=== PATIENT | female | born 1990 | race Caucasian/White ===

== ENCOUNTER → 2018-02-04 | Outpatient (CLI) | payer BC ==
--- NOTE | 2018-02-04 15:19 | RADIOLOGY REPORT (SQ) ---
EXAM DESCRIPTION: ANKLE RIGHT COMPLETE COMPLETED DATE/TIME: 02/04/2018 3:09 pm REASON FOR STUDY: SPRAIN OF RT ANKLE, UNSPEC LIGAMENT,INITIAL ENCOUNTER S93.401A SPRAIN OF UNSPECIF IED LIGAMENT OF RIGHT ANKLE, INIT COMPARISON: None. NUMBER OF VIEWS: Three views. TECHNIQUE: AP, lateral, and oblique radiographic images acquired of the right ankle. LIMITATIONS: None. FINDINGS: MINERALIZATION: Normal. BONES: No acute fracture or dislocation. No worrisome bone lesions. JOINTS: No effusions. SOFT TISSUES: No soft tissue swelling. No foreign body. OTHER: No other significant finding. IMPRESSION: NEGATIVE STUDY OF THE RIGHT ANKLE. NO RADIOGRAPHIC EVIDENCE OF ACUTE INJURY. TECHNICAL DOCUMENTATION: JOB ID: [id number] [employer]- All Rights Reserved Reading location - IP/workstation name: [email or web address]
== END ==
LOC: OD 14:50
PROVIDERS: ATTEND Nurse Practitioner Acute Care
DX: S93.401A Sprain of unspecified ligament of right ankle, initial encounter (principal); X58.XXXA Exposure to other specified factors, initial encounter

== ENCOUNTER → 2018-05-15 | Outpatient (CLI) | payer BC ==
--- NOTE | 2018-05-15 13:19 | EKG REPORT ---
SEVERITY:- NORMAL ECG - SINUS RHYTHM : Confirmed by: Moose Gill MD 15-May-2018 13:18:01
== END ==
LOC: OD 12:18
PROVIDERS: ATTEND Nurse Practitioner Family
DX: I10 Essential (primary) hypertension (principal)
CPT/HCPCS: 93005; 93010

== ENCOUNTER → 2018-07-18 | Outpatient (CLI) | payer BC ==
[2018-07-18 10:05] LABS: CHOLESTEROL 191.37 mg/dL (0-200); TRIGLYCERIDES 94 mg/dL (<150)
[2018-07-18 10:16] LABS: DIRECT LDL 111 mg/dL (<100)
== END ==
LOC: OD 08:21
PROVIDERS: ATTEND Physician Assistant
DX: I10 Essential (primary) hypertension (principal); R06.02 Shortness of breath; R00.2 Palpitations; E28.2 Polycystic ovarian syndrome
CPT/HCPCS: 36415; 80061; 84443